=== PATIENT | female | born 1965 | race African-American/Black ===

== ENCOUNTER 2022-06-11 14:13 | Emergency (ER) | payer MEDICAID ==
[~2022-06-11] VITALS: Ht 170.2 cm; Wt 68.0 kg
[2022-06-11] MEDS ORDERED: SODIUM CHLORIDE 0.9% 1,000 ML IV ONE (15:00)
[2022-06-11 15:13] LABS: BASOPHILS % 0.2 % (0.0-2.0); EOSINOPHILS % 2.3 % (0.0-5.0); HEMATOCRIT. 36.7 % (36.0-48.0); HEMOGLOBIN. 12.1 g/dL (12.0-16.0); LYMPHOCYTES % 41.9 % (20.0-50.0); MEAN CORPUSCULAR HEMOGLOBIN 29.6 pg (28.0-32.0); MEAN CORPUSCULAR VOLUME 89.9 fL (81.0-99.0); MEAN PLATELET VOLUME 9.9 fl (7.4-10.4); MONOCYTES % 8.4 % (2.0-8.0); NEUTROPHILS % 47.2 % (40.0-76.0); PLATELET 194 x1000/uL (130-400); RED BLOOD CELL COUNT 4.08 mill/uL (4.2-5.4); RED CELL DISTRIBUTION WIDTH 15.4 % (11.6-14.6)
[2022-06-11 15:23] LABS: CHLORIDE 114 mEq/L (98-107); INR 1.1; PROTHROMBIN TIME 11.3 sec (9.6-11.0)
[2022-06-11 15:35] LABS: ETHANOL BLOOD < 10 mg/dL
[2022-06-11 16:54] VITALS: BP 108/69
== END 2022-06-11 17:58 | disposition home or self-care (01) ==
LOC: ER 14:25
DX: R55 Syncope and collapse (principal); N28.89 Other specified disorders of kidney and ureter; G43.909 Migraine, unspecified, not intractable, without status migrainosus
CPT/HCPCS: 36415; 70450; 74176; 80053; 80320; 83690; 84484; 85025; 85610; 96360; 99284; Z7610; G0480

== ENCOUNTER 2023-01-05 20:44 | Emergency (ER) | payer MEDICAID ==
[~2023-01-05] VITALS: Ht 167.6 cm; Wt 77.0 kg
[2023-01-05 20:49] VITALS: BP 150/88; O2SAT 100
[2023-01-05] MEDS ORDERED: METOCLOPRAMIDE HCL 10MG/2ML VIAL IV ONE (23:45)
[2023-01-05] MEDS ORDERED: DIPHENHYDRAMINE 50MG/ML VIAL IV ONE (23:45)
[2023-01-05] MEDS ORDERED: KETOROLAC 15MG/ML VIAL IV ONE (23:45)
[2023-01-06] MEDS ORDERED: MAGNESIUM 2 G PREMIX 50 ML IV ONE (01:00)
[2023-01-06] MEDS ORDERED: SODIUM CHLORIDE 0.9% 1,000 ML IV ONE (01:00)
[2023-01-06] MEDS ORDERED: ACETAMINOPHEN 325MG TABLET PO ONE (01:00)
[2023-01-06] MEDS ORDERED: SUMATRIPTAN SUCCINATE 25MG TABLET PO ONE (01:00)
[2023-01-06] MEDS ORDERED: KETOROLAC 15MG/ML VIAL IV ONE (01:15)
[2023-01-06] MEDS ORDERED: NAPR-1176 MT (02:03)
[2023-01-06 02:44] VITALS: PULSE 88; RESP 15; TEMP 98.4
== END 2023-01-06 02:44 | disposition home or self-care (01) ==
LOC: ER 20:44
DX: G43.909 Migraine, unspecified, not intractable, without status migrainosus (principal)
CPT/HCPCS: 81025; 99284; 96365; 96375; 96376; J1200; J1885 ×2; J2765; J3475; J7030; Z7610